=== PATIENT | male | born 1990 | race African-American/Black ===

== ENCOUNTER 2016-10-16 19:16 | Emergency (ER) | payer SELFPAY ==
[~2016-10-16] VITALS: Ht 177.8 cm; Wt 92.1 kg
[2016-10-16 19:31] VITALS: BP_SYST 121
[2016-10-16] MEDS ORDERED: AZITHROMYCIN 250 MG TABLET PO ONE (20:15)
[2016-10-16] MEDS ORDERED: cefTRIAXone 250 MG VIAL IM ONE (20:15)
[2016-10-16] MEDS ORDERED: metroNIDAZOLE 500 MG TABLET PO ONE (20:15)
[2016-10-16] MEDS ORDERED: LIDOCAINE 1%, 20 ML MDV 20 ML ONE (21:42)
[2016-10-16 21:56] VITALS: BP_SYST 121
[2016-10-18 06:07] LABS: HEPATITIS B SURFACE AG Negative (Negative)
== END 2016-10-16 21:56 | disposition home or self-care (01) ==
LOC: SED 19:16
DX: Z20.6 Contact with and (suspected) exposure to human immunodeficiency virus [HIV] (principal)
CPT/HCPCS: 36415; 86592; 86706; 87340; 87491; 87591; 96372; 99284; J0696; J2001; Q0144